=== PATIENT | male | born 1995 | race Caucasian/White ===

== ENCOUNTER 2021-07-31 15:10 | Emergency (ER) | payer BC ==
--- NOTE | 2021-07-31 16:41 | RAD REPORT ---
EXAM DESCRIPTION: US - Extremity Nonvascular Limited - 07/31/2021 4:31 pm CLINICAL HISTORY: eval lumps to right neck;Pain Pain and swelling COMPARISON: No comparisons TECHNIQUE: Real-time sonographic evaluation of the area of interest right was performed. FINDINGS: Two large hypoechoic masses are present in the area of interest right neck and right shoul shannon. The larger lesion measures 3.7 x 2.3 cm is hypoechoic with irregular margins. In the region of t he right neck superiorly into the region measures 2.5 x 4.6 x 1.9 cm is noted. IMPRESSION: Two fairly large irregular hypoechoic masses in the right neck and right shoulder region . Tissue sampling is recommended with either surgical biopsy or percutaneous biopsy.
--- NOTE | 2021-07-31 16:48 | ER ---
Nurse's Notes [facility] Name: Dieter Horta Age: 25 yrs Sex: Male : 1995 Arrival Date: 07/31/2021 Time: 15:12 Bed 30 Private MD: Will Catalan Diagnosis: Localized swelling, mass and lump, neck Presentation: 07/31 15:28 Chief complaint: Patient states: Pt presents to ED for c/o a "lump" on his right ab2 shoulder. Pt went to PCP and was given abx and scheduled for an ultrasound but now has a new lump on the right side of his chin. Coronavirus screen: Vaccine status: Patient reports being unvaccinated. Client denies travel out of the [place] in the last 14 days. At this time, the client does not indicate any symptoms associated with coronavirus-19. Ebola Screen: Patient negative for fever greater than or equal to 101.5 degrees Fahrenheit, and additional compatible Ebola Virus Disease symptoms Patient denies exposure to infectious person. Patient denies travel to an Ebola-affected area in the 21 days before illness onset. No symptoms or risks identified at this time. Initial Sepsis Screen: Does the patient meet any 2 criteria? No. Patient's initial sepsis screen is negative. Does the patient have a suspected source of infection? No. Patient's initial sepsis screen is negative. Risk Assessment: Do you want to hurt yourself or someone else? Patient reports no desire to harm self or others. Onset of symptoms is unknown. 15:28 Method Of Arrival: Ambulatory ab2 15:28 Acuity: PRABHA 3 ab2 Historical: - Allergies: 15:30 No Known Allergies; ab2 - Home Meds: 15:30 None [Active]; ab2 - PMHx: 15:30 Heart murmur; ab2 - Immunization history:: Adult Immunizations up to date. - Social history:: Smoking status: Patient denies any tobacco usage or history of. Patient/guardian denies using alcohol, street drugs, IV drugs. Screenin:31 Abuse screen: Denies threats or abuse. Denies injuries from another. Nutritional ab2 screening: No deficits noted. Tuberculosis screening: No symptoms or risk factors identified. Fall Risk None identified. Assessment: 16:30 General: Appears in no apparent distress. comfortable, Behavior is calm, cooperative. eo2 Pain: Complains of pain in right sternocleidomastoid and right submandibular area. Neuro: Level of Consciousness is awake, alert, obeys commands, Oriented to person, place, time, situation, Denies dizziness, headache. Cardiovascular: No deficits noted. Reports. Respiratory: No deficits noted. Reports. Derm: Reports lump on right side of neck,and right shoulder, started on abx last friday. Vital Signs: 15:28 BP 131 / 07; Pulse 80; Resp 17; Temp 97.7; Pulse Ox 99% on R/A; Weight 90.72 kg; Height ab2 6 ft. 1 in. (185.42 cm); Pain 8/10; 16:30 BP 123 / 71; Pulse 76; Resp 15; Pulse Ox 100% ; Pain 8/10; eo2 15:28 Body Mass Index 26.39 (90.72 kg, 185.42 cm) ab2 ED Course: 15:12 Patient arrived in ED. as 15:13 Will Catalan is Private Physician. as 15:30 Triage completed. ab2 15:31 Arm band placed on left wrist. ab2 15:50 Dolly Wiley FNP-C is [facility]. kb 15:50 Dilshad Lawrence MD is Attending Physician. kb 16:21 Dasia Bragg, JOON is Primary Nurse. eo2 16:30 US Extrmty Nonvasular Limited In Process Unspecified. EDMS 16:30 Patient has correct armband on for positive identification. eo2 16:30 No provider procedures requiring assistance completed. Patient did not have IV access eo2 during this emergency room visit. Administered Medications: No medications were administered Outcome: 16:47 Discharge ordered by MD. kb 17:02 Discharged to home ambulatory. eo2 17:02 Condition: stable 17:02 Discharge instructions given to patient, Instructed on discharge instructions, follow up and referral plans. Demonstrated understanding of instructions, follow-up care. 17:04 Patient left the ED. eo2 Signatures: Dispatcher [employer] EDMS Dolly Wiley FNP-C FNP-Gabriela Santos as Dasia Bragg, RN RN eo2 Lazaro Louis ab2
--- NOTE | 2021-07-31 16:48 | EDPHYS ---
Physician Documentation [facility] Name: Dieter Horta Age: 25 yrs Sex: Male : 1995 Arrival Date: 07/31/2021 Time: 15:12 Bed 30 Private MD: Will Catalan ED Physician Dilshad Lawrence HPI: 07/31 16:24 This 25 yrs old Male presents to ER via Ambulatory with complaints of knots on kb shoulder/chin. 16:24 The patient or guardian complains of pain, swelling, tenderness, lumps. The symptoms kb are located on the right sternocleidomastoid and right submandibular area. Onset: The symptoms/episode began/occurred 1 week(s) ago. Context: The problem was sustained at home, The neck injury/problem resulted from from unknown cause. Associated signs and symptoms: The patient has no apparent associated signs or symptoms, The patient denies any alcohol use. The patient is not apparently intoxicated. No neurological symptoms were experienced by the patient prior to arrival in the emergency department. The pain does not radiate. Modifying factors: The symptoms are alleviated by nothing. the symptoms are aggravated by pressure. Severity of symptoms: At their worst the symptoms were moderate, in the emergency department the symptoms are unchanged. The patient has not experienced similar symptoms in the past. The patient has not recently seen a physician. Historical: - Allergies: 15:30 No Known Allergies; ab2 - Home Meds: 15:30 None [Active]; ab2 - PMHx: 15:30 Heart murmur; ab2 - Immunization history:: Adult Immunizations up to date. - Social history:: Smoking status: Patient denies any tobacco usage or history of. Patient/guardian denies using alcohol, street drugs, IV drugs. ROS: 16:23 Constitutional: Negative for fever, chills, and weight loss. kb 16:23 Neck: Positive for swelling, tenderness, 2 lumps noted to left side of neck. 16:23 All other systems are negative. Exam: 16:23 Constitutional: This is a well developed, well nourished patient who is awake, alert, kb and in no acute distress. Head/Face: Normocephalic, atraumatic. ENT: Moist Mucous membranes Cardiovascular: Regular rate and rhythm with a normal S1 and S2. No gallops, murmurs, or rubs. No pulse deficits. Respiratory: Respirations even and unlabored. No increased work of breathing. Talking in full sentences Skin: Warm, dry with normal turgor. Normal color. MS/ Extremity: Pulses equal, no cyanosis. Neurovascular intact. Full, normal range of motion. Neuro: Awake and alert, GCS 15, oriented to person, place, time, and situation. Moves all extremities. Normal gait. Psych: Awake, alert, with orientation to person, place and time. Behavior, mood, and affect are within normal limits. 16:23 Neck: External neck: mass, that is small, that is moderate-sized, of the right submandibular area and right sternocleidomastoid, that is tender to palpation. Vital Signs: 15:28 BP 131 / 07; Pulse 80; Resp 17; Temp 97.7; Pulse Ox 99% on R/A; Weight 90.72 kg; Height ab2 6 ft. 1 in. (185.42 cm); Pain 8/10; 16:30 BP 123 / 71; Pulse 76; Resp 15; Pulse Ox 100% ; Pain 8/10; eo2 15:28 Body Mass Index 26.39 (90.72 kg, 185.42 cm) ab2 MDM: 15:50 Patient medically screened. kb 16:23 Data reviewed: vital signs, nurses notes. Data interpreted: Pulse oximetry: on room air kb is 99 %. Interpretation: normal. 16:44 Counseling: I had a detailed discussion with the patient and/or guardian regarding: the kb historical points, exam findings, and any diagnostic results supporting the discharge/admit diagnosis, radiology results, the need for outpatient follow up, a general surgeon, to return to the emergency department if symptoms worsen or persist or if there are any questions or concerns that arise at home. 16:46 ED course: Pt and mother educated on need for biopsy. Verbal understanding received. . kb 07/31 15:52 Order name: US [place] [facility]; Complete Time: 16:43 kb Administered Medications: No medications were administered Disposition: 08/01 04:38 Co-signature as Attending Physician, Dilshad Lawrence MD I agree with the assessment and sp3 plan of care. Disposition Summary: 07/31/21 16:47 Discharge Ordered Location: Home kb Condition: Stable kb Diagnosis - Localized swelling, mass and lump, neck kb Followup: kb - With: Emergency Department - When: As needed - Reason: Worsening of condition Followup: kb - With: Private Physician - When: 2 - 3 days - Reason: Recheck today's complaints, Continuance of care, Re-evaluation by your physician Discharge Instructions: - Discharge Summary Sheet kb Forms: - Medication Reconciliation Form kb - Thank You Letter kb - Antibiotic Education kb - Prescription Opioid Use kb Signatures: Dispatcher [employer] EDDolly Maria, URIEL-C FLYING SHEAR OPERATOR-Dilshad Moscoso MD MD sp3 Lazaro Louis2
[2021-07-31 17:09] VITALS: TEMP 97.7
[2021-07-31 17:10] VITALS: BP 123/71; O2SAT 100
== END 2021-07-31 17:04 | disposition home or self-care (01) ==
LOC: ER 15:10
DX: R22.1 Localized swelling, mass and lump, neck (principal)
CPT/HCPCS: 76882

== ENCOUNTER → 2021-08-10 | Day surgery (SDC) | payer BC ==
--- NOTE | 2021-08-10 10:38 | RAD REPORT ---
EXAM DESCRIPTION: US - Biopsy Lymph Node - 08/10/2021 10:21 am CLINICAL HISTORY: R22.1 COMPARISON: No comparisons FINDINGS: Preoperative diagnosis: Lymphadenopathy. Post operative diagnosis: Suppurative lymphadenopathy. . Conscious Sedation: None Fluoroscopy time: None Contrast used: None Estimated blood loss: Minimal Specimens:Several 18 gauge core samples were obtained. Approximately 8 cc of purulent fluid was aspir ated. The neck and right supraclavicular region was prepped and draped in the usual sterile fashion. 1% lid ocaine was infiltrated into the subcutaneous tissues for local anesthesia. Under continuous ultrasoun d guidance, several 18 gauge core samples were obtained of the enlarged lymph node. There was clearly purulent material emanating from the coaxial needle. Therefore, approximately 8 cc of fluid was then aspirated. Additional core samples are obtained. A total of 4 x18 gauge core samples were performed. IMPRESSION: Technically successful ultrasound-guided fine needle aspiration core biopsy of an enlarg ed right supraclavicular lymph node. The lymph node contained purulent material concerning for sequel a of infection. Samples were collected for gram stain/culture and histologic evaluation.
== END ==
LOC: FNA 09:40
PROVIDERS: ATTEND Surgery
PROC: 07JN3ZZ Inspection of Lymphatic, Percutaneous Approach (ICD-10-PCS; principal; 2021-08-10)
DX: R22.1 Localized swelling, mass and lump, neck (principal)
CPT/HCPCS: 38505; 76942; 87070; 88162; 88305; 88312